=== PATIENT | female | born 1950 | race Caucasian/White ===

== ENCOUNTER → 2022-08-13 16:34 | Outpatient (CLI) | payer OTHER, SELFPAY ==
--- NOTE | 2022-08-13 | DI.US.S_ITS ---
PROCEDURE: US CAROTID DOPPLER BI INDICATIONS: CHEST PAIN TECHNIQUE: Color and pulse Doppler interrogation was performed of both carotid systems, with image documentation and velocity measurements. COMPARISON: None. FINDINGS: Stenosis calculations are based on SRU (Society of Radiologists in Ultrasound) criteria. The flow velocities and the arterial waveforms are normal within both carotid arterial systems. The estimated degree of internal carotid artery stenosis is less than 50%. Antegrade flow is confirmed within both vertebral arteries. IMPRESSION: No hemodynamically significant stenosis is seen. Dictated by: Ralph Handy M.D. on 08/13/2022 at 17:17 Approved by: Ralph Handy M.D. on 08/13/2022 at 17:18
--- NOTE | 2022-08-13 17:24 | DI.RAD.S_ITS ---
PROCEDURE: XR CERVICAL SPINE 2V OR 3V INDICATIONS: Dorsalgia TECHNIQUE: Three views of the cervical spine were acquired. COMPARISON: None. FINDINGS: Bones: No fractures or dislocations to the C7 level. The lateral masses of C1 appear intact on the odontoid view. There is multilevel degenerative disc disease throughout the cervical spine including moderate to severe narrowing at C5-C6 with endplate sclerosis and osteophytosis. Moderate degeneration also demonstrated at C3-C4 and C4-C5. Multilevel facet joint arthropathy is also demonstrated. There is mild uncovertebral joint arthropathy within the mid cervical spine. No suspicious bony lesions. Soft tissues: No prevertebral soft tissue swelling. IMPRESSION: 1. Multilevel degenerative changes of the cervical spine as described. Dictated by: Esequiel Schreiber M.D. on 08/14/2022 at 1:25 Approved by: Esequiel Schreiber M.D. on 08/14/2022 at 1:37
== END ==
PROVIDERS: Referring Provider Family Medicine; Visit Provider Family Medicine
DX: R07.9 Chest pain, unspecified (principal); M47.812 Spondylosis without myelopathy or radiculopathy, cervical region; M54.9 Dorsalgia, unspecified
CPT/HCPCS: 72040; 93880

== ENCOUNTER 2022-08-26 11:43 | Emergency (ER) | payer OTHER, SELFPAY ==
[2022-08-26] VITALS (25 sets, daily range): BP systolic 113–171; BP diastolic 57–82; PULSE 56–66; RESP 10–25; TEMP 35.9; O2SAT 97–100
--- NOTE | 2022-08-26 11:59 | DI.RAD.S_ITS ---
PROCEDURE: XR CHEST 1V INDICATIONS: chest pain TECHNIQUE: One view of the chest was acquired. COMPARISON: None. FINDINGS: Surgical changes and devices: None. Lungs and pleura: Lungs are clear. No pleural effusions or pneumothorax. Mediastinum: Mediastinal contours appear normal. Heart size is normal. Bones and chest wall: No suspicious bony lesions. Overlying soft tissues appear unremarkable. IMPRESSION: No acute cardiopulmonary abnormality identified. Dictated by: González Rosado M.D. on 08/26/2022 at 12:43 Approved by: González Rosado M.D. on 08/26/2022 at 12:44
[2022-08-26 12:33] LABS: Add Manual Diff / Slide Review NO; Basophils Absolute Auto 100 /uL (0-100); Basophils Percent Auto 0.7 % (0-2); Eosinophils Absolute Auto 300 /uL (0-450); Eosinophils Percent Auto 4.1 % (2-4); Hematocrit 35.4 % (36-46); Hemoglobin 11.9 g/dL (12.0-16.0); Lymphocytes Absolute Auto 1800 /uL (1100-4500); Lymphocytes Percent Auto 20.9 % (25-40); Mean Corpuscular HGB Conc 33.7 % (30-36); Mean Corpuscular Hemoglobin 30.9 PG (26-34); Mean Corpuscular Volume 91.8 fL (80-100); Monocytes Absolute Auto 700 /uL (0-900); Monocytes Percent Auto 8.3 % (3-14); Neutrophils Absolute Auto 5600 /uL (1500-7000); Platelet Count 263 X10^3/uL (150-400); Red Blood Cell Count 3.85 X10^6/uL (4.0-5.2); Red Cell Distribution Width 13.6 % (11.6-14.8); White Blood Cell Count 8.4 X10^3/uL (4.5-11.0)
[2022-08-26 12:39] LABS: Prothrombin Time 11.9 SECONDS (10.1-12.7)
[2022-08-26 12:42] LABS: PTT Partial Thromboplastin Tim 34 SECONDS (26-36)
[2022-08-26 12:45] LABS: Alanine Aminotransferase 31 IU/L (<35); Albumin 4.1 g/dL (3.5-5.0); Albumin Globulin Ratio 1.2 (1.0-2.8); Alkaline Phosphatase 86 U/L (38-126); Aspartate Aminotransferase 24 IU/L (14-36); BUN Creatinine Ratio 17.7 (6-22); Bilirubin Total 0.4 mg/dL (0.2-1.3); Blood Urea Nitrogen 14 mg/dL (7-17); Calcium 8.8 mg/dL (8.4-10.2); Carbon Dioxide 31 mmol/L (22-32); Chloride 100 mmol/L (98-107); Creatine Kinase 52 U/L (30-135); Estimated Glomerular Filt Rate > 60 mL/min (>60); Globulin 3.3 g/dL (1.7-4.1); Glucose 88 mg/dL (80-110); HEMOLYSIS < 15 (0-50); Lipase 322 U/L (23-300); Magnesium 2.1 mg/dL (1.6-2.3); Potassium 4.2 mmol/L (3.4-5.1); Sodium 138 mmol/L (137-145); Total Protein 7.4 g/dL (6.3-8.2)
[2022-08-26 12:55] LABS: Troponin I < 0.012 ng/mL (0.01-0.034)
--- NOTE | 2022-08-26 15:13 | ED.NEUROSD ---
HPI - Neuro Symptoms/Deficit General Chief Complaint: Neuro Symptoms/Deficit Stated Complaint: numbness in jaw into hindu and neck as of tod Time Seen by Provider: 08/26/22 15:05 Source: patient Mode of arrival: Ambulatory Limitations: no limitations History of Present Illness HPI Narrative: This is a 72-year-old female with history of coronary artery disease with recent cardiac stent placed on 08/20/2022 patient is on prasugel for her anticoagulant, atorvastatin, she has known GERD, sinusitis and chronic arthritis. Patient states she would some numbness and tingling of her face over the and neck that she woke up with it at 7:30 a.m.. Patient states it did not radiate anywhere else. She denies any chest pressure, no shortness of breath. She denies numbness or tingling in her extremities, no droop, no speech changes. No headache. She denies any nausea, no vomiting. No issues with bowel movements. No urination. Patient states she had a lot of neck pain 2 days ago and could not really turn her head [id number] after quilting. She took a [place] that seemed to improve her symptoms. She states that was the day before. Patient states she is on medication for GERD, coronary artery disease, sinusitis takes Claritin daily. She states she was taking diclofenac for arthritis but was told to stop because of the aspirin and medication she is currently taking. She is had a hysterectomy in the past with 1 ovary removed, appendectomy and splenectomy. States she had a stent appears that it was placed in her LAD on 08/20/2022 she did bring the card from [employer] in [place]. She is multiple medications to allergies. Patient denies tobacco rare alcohol, no illicit. She states she was having pain and tingling her and her chest for her symptoms when she had her stent placed. She also notes she had carotid ultrasounds performed here at [facility]. Related Data Allergies Allergy/AdvReac Type Severity Reaction Status Date / Time barium sulfate Allergy Verified 08/26/22 11:56 famotidine Allergy Verified 08/26/22 11:56 Iodinated Contrast Media Allergy Verified 08/26/22 11:56 neomycin Allergy Verified 08/26/22 11:56 nortriptyline Allergy Verified 08/26/22 11:56 omeprazole Allergy Verified 08/26/22 11:56 propoxyphene Allergy Verified 08/26/22 11:56 ranitidine [From Zantac] Allergy Verified 08/26/22 11:56 Review of Systems Review of Systems ROS Unobtainable: All systems reviewed & are unremarkable except as noted in HPI and below Patient History Social History Smoking Status: Unknown if ever smoked Smoking Status: Unknown if ever smoked alcohol intake frequency: holidays/special occasions only Substance Use Type: does not use Exam Narrative Exam Narrative: GEN: well nourished, well appearing female, alert and oriented x [default value], patient appears to be in mild distress. HEENT: Atraumatic, pupils are equal round reactive to light, extraocular movements are intact, nares are clear, TMs are clear with no fluid, there is no conjunctival pallor. Throat is clear without any exudates, erythema, tonsillar enlargement or uvular deviation, no facial droop. Normal sensation to light touch. HEART: Regular rate and rhythm without murmur, clicks, rubs. No carotid bruits, pulses are equal in upper and lower extremities LUNGS:Lungs clear to auscultation, no wheezes, rales, crackles, chest moves symmetrically ABD:bowel sounds normal, soft, non-tender, no guarding, rebound, rigidity, no masses noted, no hepatosplenomegaly :No CVA tenderness MSCL: Non-tender, no muscle atrophy, muscles strength 5/5 upper and lower extremities, full range of motion, normal gait NEURO:CN 2-12 intact, sensation normal,finger nose finger test normal, heel enamorado test normal SKIN: Rash, erythema or other skin changes. Initial Vital Signs Initial Vital Signs: Vital Signs Temperature 96.6 F L 08/26/22 11:54 Pulse Rate 66 08/26/22 11:54 Respiratory Rate 15 08/26/22 11:54 Blood Pressure 163/78 H 08/26/22 11:54 Pulse Oximetry 98 08/26/22 11:54 Oxygen Delivery Method 08/26/22 11:54 Scores NIH Stroke Scale Level of Conciousness: Alert, keenly responsive Ask month/age: Answers both questions correctly. Open/close eyes, close hand: Performs both tasks correctly Best gaze horizontal: Normal Visual terry: No visual loss Facial palsy: Normal symetrical movement Left arm drift: No drift for full 10 sec Right arm drift: No drift for full 10 sec Left leg drift: No drift for full 5 sec Right leg drift: No drift for full 5 sec Limb ataxia: Absent Sensory on face/arms/legs: Normal, no sensory loss Best language: No aphasia, normal Dysarthria: Normal Extinction or inattention: No abnormality Total NIH Stroke scale score: 0 Course Orders Ordered: ED Orders 08/26/22 11:59 XR chest 1V Stat 08/26/22 12:15 Complete Blood Count AUTO DIFF Stat Comprehensive Metabolic Panel Stat Lipase Stat Magnesium Stat Partial Thromboplastin Time Stat Prothrombin Time INR Stat Troponin & CK Cardiac Panel Stat 08/26/22 12:27 EKG-12 Lead Stat 08/26/22 15:57 CT head/brain wo con Stat 08/26/22 16:20 Trop I [Troponin I] Stat 08/26/22 16:26 EKG-12 Lead Stat 08/26/22 17:44 COVID19 -Nasal RAPID/Pre-Proc Stat Vital Signs Vital signs: Vital Signs - 8 hr 08/26/22 11:54 08/26/22 12:15 08/26/22 12:16 Temperature 96.6 F L Pulse Rate 66 64 Respiratory Rate 15 22 Blood Pressure 163/78 H 171/82 H Pulse Oximetry 98 98 Oxygen Delivery Method Room Air 08/26/22 12:16 08/26/22 12:23 08/26/22 12:23 Temperature Pulse Rate 63 60 Respiratory Rate 21 12 Blood Pressure 135/70 Pulse Oximetry 99 98 Oxygen Delivery Method 08/26/22 12:30 08/26/22 12:30 08/26/22 12:47 Temperature Pulse Rate 58 L 59 L Respiratory Rate 18 19 Blood Pressure 140/69 Pulse Oximetry 98 99 Oxygen Delivery Method 08/26/22 12:47 08/26/22 13:00 08/26/22 13:00 Temperature Pulse Rate 57 L Respiratory Rate 15 Blood Pressure 141/69 H 117/62 Pulse Oximetry 98 Oxygen Delivery Method 08/26/22 13:15 08/26/22 13:15 08/26/22 13:30 Temperature Pulse Rate 59 L Respiratory Rate Blood Pressure 117/64 124/65 Pulse Oximetry 98 Oxygen Delivery Method 08/26/22 13:30 08/26/22 13:45 08/26/22 13:45 Temperature Pulse Rate 56 L 56 L Respiratory Rate 23 18 Blood Pressure 123/65 Pulse Oximetry 97 98 Oxygen Delivery Method 08/26/22 14:00 08/26/22 14:00 08/26/22 14:15 Temperature Pulse Rate 57 L Respiratory Rate 23 Blood Pressure 113/60 121/63 Pulse Oximetry 98 Oxygen Delivery Method 08/26/22 14:15 08/26/22 14:30 08/26/22 14:30 Temperature Pulse Rate 56 L 57 L Respiratory Rate 25 H Blood Pressure 125/69 Pulse Oximetry 98 99 Oxygen Delivery Method 08/26/22 14:45 08/26/22 14:45 08/26/22 14:59 Temperature Pulse Rate 58 L Respiratory Rate 20 Blood Pressure 126/67 125/60 Pulse Oximetry 98 Oxygen Delivery Method 08/26/22 14:59 08/26/22 15:00 08/26/22 15:00 Temperature Pulse Rate 60 59 L Respiratory Rate 20 16 Blood Pressure 114/57 L Pulse Oximetry 99 100 Oxygen Delivery Method 08/26/22 15:15 08/26/22 15:15 08/26/22 15:30 Temperature Pulse Rate 58 L Respiratory Rate 18 Blood Pressure 115/63 113/57 L Pulse Oximetry 99 Oxygen Delivery Method 08/26/22 15:30 08/26/22 15:45 08/26/22 15:45 Temperature Pulse Rate 57 L 61 Respiratory Rate 20 18 Blood Pressure 125/77 Pulse Oximetry 99 99 Oxygen Delivery Method 08/26/22 16:00 08/26/22 16:01 08/26/22 16:01 Temperature Pulse Rate 60 60 Respiratory Rate 20 18 Blood Pressure 139/65 Pulse Oximetry 99 99 Oxygen Delivery Method 08/26/22 16:30 08/26/22 17:00 08/26/22 17:30 Temperature Pulse Rate 60 58 L 58 L Respiratory Rate 18 20 20 Blood Pressure Pulse Oximetry 99 98 97 Oxygen Delivery Method 08/26/22 17:38 08/26/22 17:38 Temperature Pulse Rate 57 L Respiratory Rate 10 L Blood Pressure 140/67 Pulse Oximetry 98 Oxygen Delivery Method MDM - Neuro Symptoms/Deficit Lab Data 08/26/22 12:15 08/26/22 12:15 Labs: Lab Results 08/26/22 08/26/22 08/26/22 Range/Units 12:15 12:15 12:15 WBC 8.4 (4.5-11.0) X10^3/uL RBC 3.85 L (4.0-5.2) X10^6/uL Hgb 11.9 L (12.0-16.0) g/dL Hct 35.4 L (36-46) % MCV 91.8 (80-100) fL MCH 30.9 (26-34) PG MCHC 33.7 (30-36) % RDW 13.6 (11.6-14.8) % Plt Count 263 (150-400) X10^3/uL Neut % (Auto) 66.0 (50-75) % Lymph % (Auto) 20.9 L (25-40) % [place] % (Auto) 8.3 (3-14) % Eos % (Auto) 4.1 H (2-4) % Baso % (Auto) 0.7 (0-2) % Neut # (Auto) 5600 (9709-0911) /uL Lymph # (Auto) 1800 (7771-6883) /uL [place] # (Auto) 700 (0-900) /uL Eos # (Auto) 300 (0-450) /uL Baso # (Auto) 100 (0-100) /uL PT 11.9 (10.1-12.7) SECONDS INR 1.0 (0.9-1.3) APTT 34 (26-36) SECONDS Sodium 138 (137-145) mmol/L Potassium 4.2 (3.4-5.1) mmol/L Chloride 100 (98-107) mmol/L Carbon Dioxide 31 (22-32) mmol/L BUN 14 (7-17) mg/dL Creatinine 0.79 (0.52-1.04) mg/dL Estimated GFR > 60 (>60) mL/min BUN/Creatinine Ratio 17.7 (6-22) Glucose 88 (80-110) mg/dL Calcium 8.8 (8.4-10.2) mg/dL Magnesium 2.1 (1.6-2.3) mg/dL Total Bilirubin 0.4 (0.2-1.3) mg/dL AST 24 (14-36) IU/L ALT 31 (<35) IU/L Alkaline Phosphatase 86 (38-126) U/L Total Creatine Kinase 52 (30-135) U/L CK-MB (CK-2) TNP CK-MB (CK-2) Rel Index TNP Troponin I < 0.012 (0.01-0.034) ng/mL Total Protein 7.4 (6.3-8.2) g/dL Albumin 4.1 (3.5-5.0) g/dL Globulin 3.3 (1.7-4.1) g/dL Albumin/Globulin Ratio 1.2 (1.0-2.8) Lipase 322 H (23-300) U/L SARS-CoV-2 (PCR) (Negative) 08/26/22 08/26/22 Range/Units 16:20 17:44 WBC (4.5-11.0) X10^3/uL RBC (4.0-5.2) X10^6/uL Hgb (12.0-16.0) g/dL Hct (36-46) % MCV (80-100) fL MCH (26-34) PG MCHC (30-36) % RDW (11.6-14.8) % Plt Count (150-400) X10^3/uL Neut % (Auto) (50-75) % Lymph % (Auto) (25-40) % [place] % (Auto) (3-14) % Eos % (Auto) (2-4) % Baso % (Auto) (0-2) % Neut # (Auto) (2383-4386) /uL Lymph # (Auto) (2592-9183) /uL [place] # (Auto) (0-900) /uL Eos # (Auto) (0-450) /uL Baso # (Auto) (0-100) /uL PT (10.1-12.7) SECONDS INR (0.9-1.3) APTT (26-36) SECONDS Sodium (137-145) mmol/L Potassium (3.4-5.1) mmol/L Chloride (98-107) mmol/L Carbon Dioxide (22-32) mmol/L BUN (7-17) mg/dL Creatinine (0.52-1.04) mg/dL Estimated GFR (>60) mL/min BUN/Creatinine Ratio (6-22) Glucose (80-110) mg/dL Calcium (8.4-10.2) mg/dL Magnesium (1.6-2.3) mg/dL Total Bilirubin (0.2-1.3) mg/dL AST (14-36) IU/L ALT (<35) IU/L Alkaline Phosphatase (38-126) U/L Total Creatine Kinase (30-135) U/L CK-MB (CK-2) CK-MB (CK-2) Rel Index Troponin I < 0.012 (0.01-0.034) ng/mL Total Protein (6.3-8.2) g/dL Albumin (3.5-5.0) g/dL Globulin (1.7-4.1) g/dL Albumin/Globulin Ratio (1.0-2.8) Lipase (23-300) U/L SARS-CoV-2 (PCR) Negative (Negative) ECG Data Attestation: I personally reviewed and interpreted this ECG as follows: Prior ECG tracings: not available for review Interpretation: Sinus rhythm left axis deviation, rate of 63 CO 138 QRS 100 QTC 417. Nonspecific change. No ST elevation or clear inversion appreciated accepted lead 3. No prior for comparison. EKG 2. Sinus bradycardia rate of 50 9p are 158 QRS of 102 and QTC 431. No acute ST elevation depression noted. No dynamic changes from prior earlier today. MDM Narrative Medical decision making narrative: This is a 72 old comes in with complaint of left facial numbness tingling which is better, her NIH is 0, head CT was obtained and is negative, patient had carotid Dopplers which are negative and chest x-ray shows no acute change. Patient had CBC coags and CMP along with LFTs, troponin and lipase are all negative. Chest x-ray shows no acute change. Discussed with patient plan for repeat troponin and EKG. Patient states symptoms were somewhat similar to what she had when she received her stent on the 20 of August. She has had carotid Dopplers of her neck with normal flow and arterial waveforms on both sides with estimated ICA carotid stenosis less than 50% and no hemodynamically significant stenosis seen on 08/13/2022. Discussed with patient NIH is 0, symptoms have resolved. Patient's symptoms were somewhat similar to what she had she would her cardiac event. She is negative troponins x2 with no acute or dynamic ST changes. Discussed with patient this time felt appropriate for discharge home but follow-up primary care and recheck and patient is to return if recurrent symptoms. Discharge Plan Departure Patient Disposition: Home Clinical Impression: Left facial numbness Activity Restrictions/Additional Instructions: Follow-up with your physician for recheck, call for an appointment if you do not have one in place. Your workup today so far has been negative. Please continue home medications as prescribed. Please return for new or worsening symptoms increasing chest or neck discomfort, numbness tingling, new speech changes, facial droop, numbness tingling of her extremities, severe headaches, shortness of breath or other new or concerning changes. Referrals: Emil Curry MD [Primary Care Provider] - Stand Alone Forms: Patient Portal/API
--- NOTE | 2022-08-26 15:57 | DI.CT.S_ITS ---
PROCEDURE: CT HEAD/BRAIN WO CON INDICATIONS: left face tingling TECHNIQUE: Noncontrast 4.5 mm thick angled axial sections acquired from the foramen magnum to the vertex, with coronal and sagittal reformats. For radiation dose reduction, the following was used: automated exposure control, adjustment of mA and/or kV according to patient size. COMPARISON: None. FINDINGS: Image quality: Excellent. CSF spaces: Basal cisterns are patent. No extra-axial fluid collections. Ventricles are normal in size and shape. Brain: No midline shift. No intracranial masses or hemorrhage. Mata-white matter interface is normal. Skull and face: Calvarium and visualized facial bones are intact, without suspicious lesions. Sinuses: Visualized sinuses and mastoids are clear. IMPRESSION: No acute intracranial finding. MRI recommended if there is continued clinical concern for infarct. Dictated by: Yosef Castano M.D. on 08/26/2022 at 16:20 Approved by: Yosef Castano M.D. on 08/26/2022 at 16:21
[2022-08-26 16:54] LABS: Troponin I < 0.012 ng/mL (0.01-0.034)
[2022-08-26 17:44] LABS: COVID19 -Nasal RAPID Negative (Negative)
== END 2022-08-26 17:44 | disposition home or self-care (01) ==
PROVIDERS: Emergency Provider Emergency Medicine; PCP Family Medicine
DX: R20.0 Anesthesia of skin (principal); R07.9 Chest pain, unspecified; Z20.822 Contact with and (suspected) exposure to COVID-19
CPT/HCPCS: 36415; 70450; 71045; 80053; 82550; 83690; 83735; 84484; 85025; 85610; 85730; 87635; 93005; 99283; 99284; C9803

== ENCOUNTER → 2023-06-15 14:33 | Outpatient (CLI) | payer OTHER, SELFPAY ==
--- NOTE | 2023-06-15 | DI.CT.S_ITS ---
PROCEDURE: CT HEAD/BRAIN WO CON INDICATIONS: Other transient cerebral ischemic attacks TECHNIQUE: Noncontrast 4.5 mm thick angled axial sections acquired from the foramen magnum to the vertex, with coronal and sagittal reformats. For radiation dose reduction, the following was used: automated exposure control, adjustment of mA and/or kV according to patient size. COMPARISON: [facility], CT, CT HEAD/BRAIN WO CON, 08/26/2022, 16:10. FINDINGS: Image quality: Excellent. CSF spaces: Basal cisterns are patent. No extra-axial fluid collections. The ventricles are symmetric in size and shape. Brain: No intracranial bleeds or masses. There is cerebral volume loss for age, with resultant ventricular and sulcal prominence. There are periventricular and deep white matter chronic small vessel ischemic changes. There is intracranial internal carotid artery atherosclerosis. Skull and face: Calvarium and visualized facial bones appear intact, without suspicious lesions. Sinuses: Visualized sinuses and mastoids are clear. IMPRESSION: Noncontrast head CT within normal limits for age, stable prior. If there is strong clinical suspicion for an acute stroke, please consider a brain MRI for further evaluation, as it is more sensitive (assuming that there is no contraindication to MRI). Dictated by: Ralph Handy M.D. on 06/15/2023 at 15:30 Approved by: Ralph Handy M.D. on 06/15/2023 at 15:31
--- NOTE | 2023-06-15 | DI.RAD.S_ITS ---
PROCEDURE: XR LUMBAR SPINE 2-3V INDICATIONS: BACK PAIN TECHNIQUE: 3 views of the lumbar spine were acquired. COMPARISON: None. FINDINGS: Bones: 5 [id number] vertebrae are present. There is normal bony alignment. No vertebral body compression fractures. No suspicious bony lesions. Severe degenerative change with severe multilevel disc height loss at L3-L4 through L5-S1, as well as lower lumbar facet arthropathy. Soft tissues: Overlying bowel gas pattern is normal. No suspicious soft tissue calcifications. IMPRESSION: Severe degenerative change. No acute bony abnormality. Dictated by: Len Correa M.D. on 06/15/2023 at 17:07 Approved by: Len Correa M.D. on 06/15/2023 at 17:08
== END ==
PROVIDERS: PCP Family Medicine; Referring Provider Family Medicine; Visit Provider Family Medicine
DX: G45.8 Other transient cerebral ischemic attacks and related syndromes (principal); M47.816 Spondylosis without myelopathy or radiculopathy, lumbar region; M47.817 Spondylosis without myelopathy or radiculopathy, lumbosacral region; M54.9 Dorsalgia, unspecified; M54.50 Low back pain, unspecified
CPT/HCPCS: 70450; 72100

== ENCOUNTER → 2023-08-02 14:05 | Outpatient (CLI) | payer OTHER, SELFPAY ==
--- NOTE | 2023-08-02 14:08 | DI.RAD.S_ITS ---
PROCEDURE: XR CERVICAL SPINE 2V OR 3V INDICATIONS: NECK PAIN TECHNIQUE: 3 view(s) of the cervical spine were acquired. COMPARISON: [facility], CR, XR CERVICAL SPINE 2V OR 3V, 08/13/2022, 17:44. FINDINGS: Bones: No fractures or dislocations to the C7 level. Loss of normal cervical lordosis. The lateral masses of C1 appear intact on the odontoid view. There is grade 1 anterolisthesis of C3 on C4 and trace retrolisthesis of C4 on C5 and C5 on C6. No suspicious bony lesions. Degenerative disc disease, moderate at C3-C4, C4-C5 and C5-C6. Mild bilateral facet arthropathy scattered in cervical spine. Soft tissues: No prevertebral soft tissue swelling. IMPRESSION: 1. Moderate degenerative disease and mild facet arthropathy in cervical spine. If clinical symptoms persist, consider MRI for follow-up. Dictated by: Carl Kennedy M.D. on 08/03/2023 at 8:34 Approved by: Carl Kennedy M.D. on 08/03/2023 at 8:36
== END ==
PROVIDERS: PCP Family Medicine; Referring Provider Family Medicine; Visit Provider Family Medicine
DX: M50.11 Cervical disc disorder with radiculopathy, high cervical region (principal); M47.22 Other spondylosis with radiculopathy, cervical region
CPT/HCPCS: 72040

== ENCOUNTER 2023-10-03 10:34 | Day surgery (SDC) | payer OTHER, SELFPAY ==
[2023-09-30 09:29] VITALS: BMI 36.5
--- NOTE | 2023-10-03 | PATH_ITS ---
[facility] Accession Number: [id number] No. of containers..01 Tissue . 01 Material submitted: . back - BACK . 01 Clinical history: . MELANOMA . 01 Diagnosis: BACK, EXCISION: Residual malignant melanoma in situ, examined inked margins are free. Dermal scar, consistent with procedural site changes. Incidental lentiginous junctional melanocytic nevus. [facility] 10/10/2023 1211 Local . 01 Comment: Additional step sections are examined on blocks A1, A3, A4, A6, A7, A10, A12, A14, A16, A18, A20, and A22. In addition, Melan-A stains are performed on blocks A1, A2, A3, A4, A6, A7, A10, A12, A14, A16, A18, A20, A21, A22, and A23 which support the above diagnosis. . . * This test was developed and its performance characteristics determined by [facility]. It has not been cleared or approved by the U.S. Food and Drug Administration. The FDA has determined that such clearance or approval is not necessary. This test is used for clinical purposes. It should not be regarded as investigational or for research. . 01 Electronically signed: . Shahriar Lopez MD, Dermatopathologist NPI- [id number] . 01 Gross description: . The specimen is received in formalin, labeled with the patient's name, , and back melanoma, and consists of an oriented ellipse of skin with a short suture at one tip designating superior and a long suture at one edge designating left per the container. The short suture is arbitrarily designated 12 o'clock with the long suture designating 9 o'clock. The specimen measures 4.9 cm from 12 to 6, 2.2 cm from 3 to 9, and 3.8 cm thick. Inked as follows: 12 to 3 orange, 3 to 6 blue, 6 to 9 to 12 green. Serially sectioned from 12 to 6 into 16 slices. Submitted entirely as follows: . A1: Tips. A2: Slice 2. A3: Slice 3. A4: Composite slice 4. A5-A6: Composite slice 5. A7-A8: Composite slice 6. A9-A10: Composite slice 7. A11-A12: Composite slice 8. A13-A14: Composite slice 9. A15-A16: Composite slice 10. A17-A18: Composite slice 11. A19-A20: Composite slice 12. A21: Composite slice 13. A22: Composite slice 14. A23: Composite slice 16. See diagram. ([id number]) /MRV 10/05/2023 [facility]9 Local . 01 Pathologist provided ICD-10: D03.9, D22.9 . 01 CPT . 992682, [id number] Specimen Comment: A courtesy copy of this report has been sent to [phone] Performed at: 01 [facility] [address] [place] [address], [place], [place] [id number] MD Esequiel Chu MD Phone: [phone]
[2023-10-03] MEDS: LACTATED RINGERS 1,000 ML 42 ML IV ×2 (11:17→15:15)
[2023-10-03 11:24] VITALS: BP 131/73; PULSE 58; RESP 18; TEMP 36.3; O2SAT 96; BMI 35.4
--- NOTE | 2023-10-03 13:22 | PM.PREOP ---
Pre-operative Note COVID-19 COVID-19 status: Not tested Interval Note History & Physical reviewed/Exam performed by Physician: Yes Changes to H&P: No ASA Class (for procedural sedation): II
--- NOTE | 2023-10-03 14:51 | SUR.OPER ---
Prone on padded OR bed, head in foam head support, gel chest rolls, gel pad under knees, pillow under lower legs, toes free of pressure, arms secured on padded arm boards at <90 degrees abduction. Safety belt at thigh.
[2023-10-03] MEDS: BUPIVACAINE 0.5% (PF) 30 ML, EPINEPHrine 0.15 MG INJ (15:02)
--- NOTE | 2023-10-03 15:39 | P.OP_ITS ---
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 The lesion was just to the right of her spine at roughly T1. She was marked in the preoperative holding area and consented for wide local excision with a flap reconstruction. The patient was brought to the operating room and general endotracheal anesthesia was induced. No antibiotics were indicated. She was positioned prone on the operating room table. The back was prepped and draped in the usual fashion and a time-out was performed. A ruler was used to alondra a 1 cm margin around melanoma in-situ biopsy spot. We then created an ellipse measuring ro ughly 3 cm wide by 8 cm long oriented axially. We then barbara out the shape of the keystone flap for the reconstruction which was taken from skin from the right side. The widest portion of the flap was about 3.5 cm or slightly wider than specimen itself. The ellipse was excised down to muscle fascia. A short stitch was placed at the superior aspect of the specimen and a long stitch the left which was the medial side of the specimen. Hemostasis was obtained with cautery. We then start closing wound using multiple buried interrupted dermal sutures using 3-0 Vicryl. We then closed the skin incisions with multiple 2-0 nylon mattress sutures. A few additional simple Monocryl sutures were placed to close up the skin edges in various places. The patient was then awakened and brought to recovery room. EBL: 10 mL Specimen: Right back melanoma in-situ Post-operative Condition: stable Disposition: PACU
[2023-10-03 15:52] VITALS: BP 152/67; PULSE 72; RESP 14; TEMP 36.5; O2SAT 92
[2023-10-03 15:58] VITALS: BP 128/64; PULSE 68; RESP 18; O2SAT 94
[2023-10-03 16:03] VITALS: BP 98/74; PULSE 65; RESP 18; O2SAT 92
[2023-10-03 16:13] VITALS: BP 134/64; PULSE 62; RESP 18; TEMP 36.6; O2SAT 95
[2023-10-03] MEDS: BENZOCAINE/MENTHOL 1 LOZ PKT 1 EACH PO (16:16)
[2023-10-03 16:19] VITALS: BP 144/63; PULSE 65; RESP 18; O2SAT 94
== END 2023-10-03 16:46 | disposition home or self-care (01) ==
PROVIDERS: PCP Family Medicine; Referring Provider Surgery; Visit Provider Surgery
PROC: (CPT 14001; principal; 2023-10-03 12:30)
DX: D03.59 Melanoma in situ of other part of trunk (principal); D22.9 Melanocytic nevi, unspecified
CPT/HCPCS: 14001; J0171; J1100; J2405; J2704; J3010

== ENCOUNTER → 2024-09-05 11:31 | Outpatient (CLI) | payer MEDICARE, SELFPAY ==
--- NOTE | 2024-09-05 11:34 | DI.RAD.S_ITS ---
PROCEDURE: XR KNEE LT 3V INDICATIONS: Pain in left knee TECHNIQUE: 3 views of the knee were acquired. COMPARISON: None. FINDINGS: Bones: No osseous abnormalities. Joints: Hemiarthroplasty changes medial compartment of the tibiofemoral joint are anatomically aligned without loosening . Moderate patellofemoral degenerative change appreciated. Moderate effusion noted. Soft tissues: Mild diffuse swelling noted IMPRESSION: Moderate effusion. Moderate patellofemoral degeneration Medial compartment hemiarthroplasty unremarkable Dictated by: Wyatt Soto M.D. on 09/06/2024 at 17:15 Approved by: Wyatt Soto M.D. on 09/06/2024 at 17:16
== END ==
LOC: RAD 11:32
PROVIDERS: PCP Family Medicine; Referring Provider Family Medicine; Visit Provider Family Medicine
DX: M17.12 Unilateral primary osteoarthritis, left knee (principal); M25.562 Pain in left knee; M25.462 Effusion, left knee; Z96.652 Presence of left artificial knee joint
CPT/HCPCS: 73562

== ENCOUNTER → 2025-05-22 07:11 | Outpatient (CLI) | payer MEDICARE, SELFPAY ==
--- NOTE | 2025-05-22 07:13 | DI.US.S_ITS ---
PROCEDURE: US ABDOMEN LIMITED INDICATIONS: EPIGASTRIC PAIN TECHNIQUE: Real-time focused scanning was performed of the abdomen, with image documentation. COMPARISON: None. FINDINGS: Liver measures 18 cm. Increased echogenicity is seen. Multiple cysts are present, measuring up to 1.2 cm. Cholelithiasis. No sonographic Stanley's sign. CBD is mildly dilated at 8 mm. IMPRESSION: Cholelithiasis without sonographic Stanley sign. No pathologic gallbladder wall thickening. Mildly dilated CBD at 8 mm. Increased hepatic echogenicity, nonspecific, most commonly due to steatosis. Dictated by: Jonah Stroud M.D. on 05/22/2025 at 8:29 Approved by: Jonah Stroud M.D. on 05/22/2025 at 8:29
--- NOTE | 2025-05-22 08:13 | DI.RAD.S_ITS ---
PROCEDURE: XR ANKLE RT MIN 3V INDICATIONS: Pain in right ankle and joints of right foot TECHNIQUE: 3 views of the ankle were acquired. COMPARISON: None. FINDINGS: Bones: Minor spurring anterior tibial plafond Tibiotalar and talocalcaneal joints: Mild ankle degeneration noted. The talocalcaneal joint is normal width and alignment without arthritic change. Soft tissues: Minor calcification Achilles tendon insertion on the calcaneus. Mild diffuse soft tissue swelling. IMPRESSION: Mild ankle degeneration other chronic findings Dictated by: Wyatt Soto M.D. on 05/22/2025 at 12:30 Approved by: Wyatt Soto M.D. on 05/22/2025 at 12:31
--- NOTE | 2025-05-22 08:13 | DI.RAD.S_ITS ---
PROCEDURE: XR FOOT RT 2V INDICATIONS: Pain in right ankle and joints of right foot TECHNIQUE: 3 views of the foot were acquired. COMPARISON: None. 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 There are no focal osseous abnormalities Joints: Mild degeneration 1st MTP and 2nd through 5th DIP joints . Soft tissues: Mild Achilles tendon insertion calc calcification. IMPRESSION: Chronic findings as described Dictated by: Wyatt Soto M.D. on 05/22/2025 at 12:32 Approved by: Wyatt Soto M.D. on 05/22/2025 at 12:33
== END ==
PROVIDERS: PCP Family Medicine; Referring Provider Family Medicine; Visit Provider Family Medicine
DX: M19.071 Primary osteoarthritis, right ankle and foot (principal); M79.89 Other specified soft tissue disorders; M65.271 Calcific tendinitis, right ankle and foot; Q66.89 Other specified congenital deformities of feet; K80.20 Calculus of gallbladder without cholecystitis without obstruction; K83.8 Other specified diseases of biliary tract; K76.89 Other specified diseases of liver; M25.571 Pain in right ankle and joints of right foot; R10.13 Epigastric pain
CPT/HCPCS: 73610; 73630; 76705

== ENCOUNTER → 2025-07-04 12:33 | Outpatient (CLI) | payer MEDICARE, SELFPAY ==
[2025-07-04 13:10] LABS: Add Manual Diff / Slide Review NO; Hematocrit 33.2 % (36-46); Hemoglobin 11.4 g/dL (12.0-16.0); Lymphocytes Absolute Auto 1600 /uL (1100-4500); Mean Corpuscular HGB Conc 34.4 % (30-36); Mean Corpuscular Hemoglobin 31.3 PG (26-34); Mean Corpuscular Volume 90.9 fL (80-100); Platelet Count 214 X10^3/uL (150-400)
[2025-07-04 13:58] LABS: Alanine Aminotransferase 26 IU/L (<35); Albumin 4.4 g/dL (3.5-5.0); Albumin Globulin Ratio 1.8 (1.0-2.8); Alkaline Phosphatase 82 U/L (38-126); Blood Urea Nitrogen 25 mg/dL (7-17); Calcium 9.4 mg/dL (8.4-10.2); Carbon Dioxide 28 mmol/L (22-32); Chloride 103 mmol/L (98-107); Estimated Glomerular Filt Rate > 60 mL/min (>60); Globulin 2.5 g/dL (1.7-4.1); Glucose 96 mg/dL (70-99); HEMOLYSIS < 15 (0-50); Lipase 323 U/L (23-300); Potassium 4.3 mmol/L (3.4-5.1); Sodium 140 mmol/L (137-145); Total Protein 6.9 g/dL (6.3-8.2)
== END ==
PROVIDERS: PCP Family Medicine; Referring Provider Family Medicine; Visit Provider Surgery
DX: K80.20 Calculus of gallbladder without cholecystitis without obstruction (principal)
CPT/HCPCS: 36415; 80053; 83690; 85025

== ENCOUNTER 2025-07-31 06:00 | Day surgery (SDC) | payer MEDICARE, SELFPAY ==
[2025-07-30 08:04] VITALS: BMI 38.0
[2025-07-31] VITALS (8 sets, daily range): BP systolic 123–136; BP diastolic 52–69; PULSE 66–80; RESP 13–22; TEMP 36.3–36.6; O2SAT 80–97
--- NOTE | 2025-07-31 | PATH_ITS ---
[facility] Accession Number: [id number] No. of containers..01 Tissue . 01 Material submitted: . gallbladder - GALLBLADDER . 01 Diagnosis: GALLBLADDER, CHOLECYSTECTOMY: Chronic cholecystitis, cholesterolosis, and cholelithiasis. One benign cystic duct lymph node (0). [facility] 08/06/2025 1522 Local . 01 Electronically signed: . Dayan Carpio MD, Pathologist NPI- [id number] . 01 Gross description: . Received in formalin with two patient identifiers and gallbladder, is a 9.8 x 3.0 x 2.5 cm intact gallbladder. The stapled cystic duct margin is inked black. The serosa is purple-green and smooth. The mucosa is green and velvety with a 0.3 cm thick wall. The lumen contains green, viscous bile and multiple brown, multifaceted calculi up to 0.8 cm, focally obstructing the cystic duct. There is a 1.5 cm possible lymph node adjacent to the cystic duct. Help Desk Administrator sections are submitted as follows: A1: Cystic duct margin and gallbladder wall. A2: Entire possible lymph node, sectioned. ([id number]) /SHAYY 08/02/2025 0856 Local . 01 Pathologist provided ICD-10: K80.11 . 01 CPT . 003810 Specimen Comment: A courtesy copy of this report has been sent to [phone] Performed at: [address] [id number] MD Esequiel Chu MD Phone: [phone]
--- NOTE | 2025-07-31 | DI.RAD.S_ITS ---
PROCEDURE: XR CHOLANGIOGRAM OPERATIVE INDICATIONS: lap tien COMPARISON: None. FINDINGS: Biliary ducts: The surgeon injected contrast into the biliary ducts after cannulation of the cystic duct stump. Visualized intra- and extrahepatic bile ducts are normal in caliber, without strictures. No intraluminal filling defects to suggest retained ductal stones or sludge. No evidence for iatrogenic ductal injury. Duodenum: Contrast flows promptly through the sphincter of Oddi into the duodenum, which appears normal in caliber. IMPRESSION: Fluoroscopic guidance utilized for a laparoscopic cholecystectomy. Dictated by: Chavo Bowling M.D. on 07/31/2025 at 9:27 Approved by: Chavo Bowling M.D. on 07/31/2025 at 9:27
[2025-07-31] MEDS: LACTATED RINGERS 1,000 ML 42 ML IV ×2 (07:10→09:41)
[2025-07-31] MEDS: ACETAMINOPHEN IV 1,000 MG/100 ML VIAL 400 MG IV (07:10)
[2025-07-31] MEDS: INDOCYANINE GREEN 25 MG VIAL IV (07:20)
--- NOTE | 2025-07-31 07:23 | PM.PREOP ---
Pre-operative Note COVID-19 COVID-19 status: Not tested Interval Note History & Physical reviewed/Exam performed by Physician: Yes Changes to H&P: No ASA Class (for procedural sedation): II
[2025-07-31] MEDS: FAMOTIDINE 20 MG/2 ML VIAL IV (07:34)
--- NOTE | 2025-07-31 08:05 | SUR.OPER ---
Supine on padded OR bed, head on pillow, arms padded with gel and tucked at sides. Safety strap across torso. Legs uncrossed, safety belt at thigh, tape over blanket over lower legs . Foot board.
--- NOTE | 2025-07-31 10:01 | P.OP_ITS ---
Operative Date/Time/Diagnoses Date of procedure: 07/31/25 Time of procedure: 10:01 Pre-op diagnosis: Symptomatic cholelithiasis Post-op diagnosis: same Procedure & Clinicians Procedure: Robotic cholecystectomy with intraoperative cholangiogram Same procedure(s) as scheduled: Yes Surgeon: Sanchez Zamudio Assisted?: Yes Inspector Rubber Stamp Die: Chaim Wang Anesthesia Type: General Operative Notes Findings: A dilated common duct with no obvious filling defects or obstruction Applied: none Estimated Blood Loss (mL): 25 Procedure in detail: The patient was given preoperative antibiotics. The patient was brought to the operating room, placed on the table in the supine position. General endotracheal anesthesia was induced. Both arms were tucked. The abdomen was prepped and draped. A time-out was performed. We made a 1 cm infraumbilical incision. We dissected down to the base of the umbilical stalk using cautery. We grasped the umbilical stalk with a Daron clamp to elevate the abdominal wall. We opened the fascia in the midline with cautery. We pierced the peritoneum with a Peon clamp. The 12 mm port was placed and the abdomen was insufflated to 15 mmHg. The endoscope was inserted. There was no evidence of any injury from the entry. Next, we placed 8 mm ports in the standard position. The patient was then positioned in 15? of reverse Trendelenburg and the table was tilted slightly to the left. The robot was brought in from the patient's left side and docked. A fenestrated bipolar was placed through arm 1, the monopolar scissors through arm 3 and the ProGrasp through arm 4. The liver was quite enlarged and the ProGrasp was used to elevate the liver as well as retraction gallbladder. The gallbladder was grasped at the dome with the ProGrasp and retracted cephalad. Next the cystic structures were dissected using the monopolar scissors. A critical view was obtained. Firefly was also utilized to visualize the cystic duct common duct junction which was well seen. Next, a cholangiogram was performed using the 4 Amharic ureteral catheter through a 14 gauge Angiocath placed in the right upper quadrant. There was good flow of contrast into the duodenum and liver with no obvious filling defects. The cystic duct-common duct junction was well visualized. We then placed hemoclips on the cystic duct and artery and divided the cystic duct and artery between the clips. The gallbladder was then dissected off the liver and placed in a specimen retrieval bag. A small amount of blood and bile was suctioned out of the right upper quadrant. We then removed the 8 mm ports under direct vision we removed the 12 mm port. We then injected some local into the fascia and closed the fascia at the infraumbilical incision with two interrupted 0 Vicryl sutures. The skin incisions were closed with 4 Monocryl and Steri-Strips were applied. Band-Aids were applied over the Steri-Strips. Specimen: Gallbladder and contents Complications: none Post-operative Condition: stable Disposition: PACU
[2025-07-31] MEDS: ONDANSETRON 4 MG/2 ML INJ IV (10:25)
--- NOTE | 2025-07-31 11:10 | SUR.PHASEII ---
Pt resting quietly. Denies pain. eating ice chips and conversing with .
== END 2025-07-31 11:43 | disposition home or self-care (01) ==
PROVIDERS: PCP Family Medicine; Referring Provider Surgery; Visit Provider Surgery
PROC: 0FT44ZZ Resection of Gallbladder, Percutaneous Endoscopic Approach (ICD-10-PCS; CPT 47563; principal; 2025-07-31 07:45)
DX: K80.10 Calculus of gallbladder with chronic cholecystitis without obstruction (principal); I25.10 Atherosclerotic heart disease of native coronary artery without angina pectoris; Z87.891 Personal history of nicotine dependence; Z79.82 Long term (current) use of aspirin; Z90.710 Acquired absence of both cervix and uterus; Z90.81 Acquired absence of spleen
CPT/HCPCS: 47562; 74300; S2900; J0131; J0689; J1100; J2405; J2704; J3010; J3490; J7120; Q9967